=== PATIENT | male | born 1950 | race Caucasian/White ===

== ENCOUNTER 2020-09-10 01:17 | Emergency (ER) | payer OTHER ==
[~2020-09-10] VITALS: Ht 177.8 cm; Wt 84.0 kg
[~2020-09-10 01:17] MED LIST: AMI2 PO; ATOR40TA70 PO; Aspirin PO; CARV3.1242 PO; CLOP75TA15 PO; FERR-43 PO; Folic Acid PO; Hydrocortisone PO; LEVO25TA7 PO; LISI2.5T47 PO; Multivitamins,Therapeutic PO; OMEP20TA2 PO; ONDA4TAB5 PO; PRAS10TA6 PO; Thiamine Hcl PO
[2020-09-10 02:53] VITALS: BP 159/84
== END 2020-09-10 04:33 | disposition home or self-care (01) ==
LOC: ER 01:17
DX: F10.129 Alcohol abuse with intoxication, unspecified (principal); Y90.0 Blood alcohol level of less than 20 mg/100 ml; I10 Essential (primary) hypertension; K29.20 Alcoholic gastritis without bleeding; Z79.899 Other long term (current) drug therapy
CPT/HCPCS: 99283

== ENCOUNTER 2020-11-29 13:32 | Emergency (ER) | payer OTHER ==
[~2020-11-29] VITALS: Ht 172.7 cm; Wt 80.0 kg
[2020-11-29] MEDS ORDERED: SODIUM CHLORIDE 0.9% 1,000 ML IV ONE (14:00)
[2020-11-29 14:18] LABS: BASOPHILS % 0.5 % (0.0-2.0); EOSINOPHILS % 0.8 % (0.0-5.0); HEMATOCRIT. 38.9 % (42.0-52.0); HEMOGLOBIN. 13.5 g/dL (14.0-18.0); LYMPHOCYTES % 57.8 % (20.0-50.0); MEAN CORPUSCULAR HEMOGLOBIN 31.8 pg (28.0-32.0); MEAN CORPUSCULAR VOLUME 91.5 fL (80.0-94.0); MEAN PLATELET VOLUME 8.2 fl (7.4-10.4); MONOCYTES % 6.3 % (2.0-8.0); NEUTROPHILS % 34.6 % (40.0-76.0); PLATELET 155 x1000/uL (130-400); RED BLOOD CELL COUNT 4.25 mill/uL (4.7-6.1); RED CELL DISTRIBUTION WIDTH 14.5 % (11.6-14.6)
[2020-11-29 14:23] LABS: CHLORIDE 101 mEq/L (98-107)
[2020-11-29 14:27] LABS: ETHANOL BLOOD 172 mg/dL
[2020-11-29] MEDS ORDERED: DEXT 5% WATER 250 ML IV ONE (14:45)
[2020-11-29 18:29] VITALS: BP 110/78
[2020-11-29] MEDS ORDERED: ONDANSETRON HCL 4MG/2ML INJ IV ONE (18:45)
== END 2020-11-29 19:12 | disposition home or self-care (01) ==
LOC: ER 13:32
DX: F10.129 Alcohol abuse with intoxication, unspecified (principal); Y90.6 Blood alcohol level of 120-199 mg/100 ml; I10 Essential (primary) hypertension; R53.1 Weakness; R42 Dizziness and giddiness
CPT/HCPCS: 36415; 80053; 80320; 82962; 83690; 85025; 93005; 96361; 96374; 99284; J2405; J7030; J7060; G0480

== ENCOUNTER 2021-07-26 11:09 | Emergency (ER) | payer OTHER ==
[~2021-07-26] VITALS: Ht 167.6 cm; Wt 78.0 kg
[2021-07-26] MEDS ORDERED: ONDANSETRON HCL 4MG/2ML INJ IV STA (11:19)
[2021-07-26 12:30] LABS: BASOPHILS % 0.5 % (0.0-2.0); EOSINOPHILS % 1.6 % (0.0-5.0); HEMATOCRIT. 36.4 % (42.0-52.0); HEMOGLOBIN. 12.4 g/dL (14.0-18.0); MEAN CORPUSCULAR HEMOGLOBIN 32.5 pg (28.0-32.0); MEAN CORPUSCULAR VOLUME 95.1 fL (80.0-94.0); MEAN PLATELET VOLUME 8.5 fl (7.4-10.4); MONOCYTES % 7.9 % (2.0-8.0); PLATELET 120 x1000/uL (130-400); RED BLOOD CELL COUNT 3.83 mill/uL (4.7-6.1); RED CELL DISTRIBUTION WIDTH 13.3 % (11.6-14.6)
[2021-07-26 12:36] LABS: CHLORIDE 105 mEq/L (98-107)
[2021-07-26 12:40] LABS: ETHANOL BLOOD < 10 mg/dL
[2021-07-26] MEDS ORDERED: SODIUM CHLORIDE 0.9% 1,000 ML IV ONE (13:30)
[2021-07-26] MEDS ORDERED: ASPIRIN 81MG TABLET PO ONE (15:45)
[2021-07-26 19:55] VITALS: BP 118/66
== END 2021-07-26 19:56 | disposition home or self-care (01) ==
LOC: ER 11:09 → EDBEDREQ 13:24 → EDBEDREQTM 13:24 → ER 19:56 → CANBEDREQ 20:13
DX: R07.89 Other chest pain (principal); R11.2 Nausea with vomiting, unspecified; I10 Essential (primary) hypertension; Z79.899 Other long term (current) drug therapy; Z20.822 Contact with and (suspected) exposure to COVID-19
CPT/HCPCS: 36415; 71045; 80053; 80320; 83880; 84484; 85025; 87426; 93005; 96374; 99285; J2405; J7030; G0480

== ENCOUNTER 2021-09-05 16:58 | Inpatient (IN) | payer OTHER ==
[~2021-09-05] VITALS: Ht 185.4 cm; Wt 82.8 kg
[2021-09-05] MEDS ORDERED: ONDANSETRON HCL 4MG/2ML INJ IV STA (17:16)
[2021-09-05] MEDS ORDERED: MORPHINE SULFATE 4 MG/ML CPJ (NOT FOR IM USE) IV STA (17:16)
[2021-09-05] MEDS ORDERED: PANTOPRAZOLE SODIUM 40 MG/VIAL IV ONE (17:30)
[2021-09-05] MEDS ORDERED: SODIUM CHLORIDE 0.9% 1000ML BAG (SEPSIS BOLUS) IV ONE (17:30)
[2021-09-05] MEDS ORDERED: SODIUM CHLORIDE 0.9% 1,000 ML IV ONE (17:30)
[2021-09-05 18:47] LABS: BASOPHILS % 0.6 % (0.0-2.0); EOSINOPHILS % 0.8 % (0.0-5.0); HEMATOCRIT. 37.4 % (42.0-52.0); HEMOGLOBIN. 12.7 g/dL (14.0-18.0); LYMPHOCYTES % 32.7 % (20.0-50.0); MEAN CORPUSCULAR HEMOGLOBIN 31.3 pg (28.0-32.0); MEAN CORPUSCULAR VOLUME 92.4 fL (80.0-94.0); MEAN PLATELET VOLUME 8.6 fl (7.4-10.4); MONOCYTES % 8.5 % (2.0-8.0); NEUTROPHILS % 57.4 % (40.0-76.0); PLATELET 131 x1000/uL (130-400); RED BLOOD CELL COUNT 4.05 mill/uL (4.7-6.1); RED CELL DISTRIBUTION WIDTH 13.3 % (11.6-14.6)
[2021-09-05 18:49] LABS: CHLORIDE 104 mEq/L (98-107)
[2021-09-05 18:53] LABS: ETHANOL BLOOD 35 mg/dL
[2021-09-05] MEDS ORDERED: MAGNESIUM/ALUMINUM HYDROXIDE/SIMETHICONE 30ML UDC PO NR (19:30)
[2021-09-05] MEDS ORDERED: VISCOUS LIDOCAINE 2% 15 ML UDC MM NR (19:30)
[2021-09-05] MEDS ORDERED: DEXTROSE 50% WATER 50ML SYRINGE IV PRN (23:30)
[2021-09-05] MEDS: ONDANSETRON HCL 4MG/2ML INJ IV PRN (23:39)
[2021-09-05] MEDS: MORPHINE SULFATE 2 MG/ML CPJ (NOT FOR IM USE) IV PRN (23:39)
[2021-09-06 00:14] LABS: CLARITY URINE CLEAR (CLEAR); COLOR URINE YELLOW (YELLOW); KETONES URINE 4+ (NEGATIVE); LEUKOCYTE ESTERASE URINE NEGATIVE (NEGATIVE); NITRITE URINE NEGATIVE (NEGATIVE); OCCULT BLOOD URINE 1+ (NEGATIVE); PH URINE 5.5 (4.5-8.0); PROTEIN URINE TRACE (NEGATIVE); SPECIFIC GRAVITY URINE 1.023 (1.005-1.030)
[2021-09-06 00:31] LABS: *BARBITURATES SCREEN URINE NEGATIVE (NEGATIVE)
[2021-09-06 00:32] LABS: *BENZODIAZEPINES SCREEN URINE NEGATIVE (NEGATIVE); *COCAINE SCREEN URINE NEGATIVE (NEGATIVE)
[2021-09-06 00:34] LABS: *AMPHETAMINES SCREEN URINE NEGATIVE (NEGATIVE); CANNABINOID URINE SCREEN NEGATIVE (NEGATIVE); METHADONE URINE SCREEN NEGATIVE (NEGATIVE); OPIATES URINE SCREEN PRESUMTIVE POSITIVE (NEGATIVE); PHENCYCLIDINE URINE SCREEN NEGATIVE (NEGATIVE)
[2021-09-06] MEDS ORDERED: METOCLOPRAMIDE HCL 10MG/2ML VIAL IV ONE (07:00)
[2021-09-06] MEDS ORDERED: METRONIDAZOLE 500 MG PREMIX 100 ML IV SCH (09:00)
[2021-09-06] MEDS ORDERED: LEVOFLOXACIN 500MG PREMIX 100 ML IV SCH (09:00)
[2021-09-06] MEDS ORDERED: PANTOPRAZOLE SODIUM 40 MG/VIAL IV SCH (09:00)
[2021-09-06 09:03] VITALS: BP 140/72
[2021-09-06] MEDS ORDERED: FOLIC ACID 1 MG, THIAMINE HCL 100 MG, MVI, ADULT NO.1 10 ML in DEXTROSE 5% WATER 1,000 ML IV ONE ×4 (10:00)
[2021-09-06] MEDS: LEVOFLOXACIN 500MG PREMIX 100 ML IV SCH (11:37)
[2021-09-06] MEDS: ONDANSETRON HCL 4MG/2ML INJ IV PRN (11:37)
[2021-09-06 12:00] VITALS: BP 140/74
[2021-09-06] MEDS: METRONIDAZOLE 500 MG PREMIX 100 ML IV SCH ×2 (15:09→21:18)
[2021-09-06] MEDS ORDERED: ASPI-1497 PO (15:51)
[2021-09-06 16:00] VITALS: BP 134/71
[2021-09-06] MEDS ORDERED: FURO20TA4 PO (16:00)
[2021-09-06] MEDS ORDERED: GABA-529 PO (16:00)
[2021-09-06] MEDS ORDERED: DABI150C PO (16:00)
[2021-09-06] MEDS: SUCRALFATE 1G TABLET PO SCH ×2 (17:24→21:18)
[2021-09-06 20:00] VITALS: BP 139/57
[2021-09-06] MEDS: BLOOD SUGAR DIAGNOSTIC STRIP TEST SCH (20:56)
[2021-09-06] MEDS: PANTOPRAZOLE SODIUM 40 MG/VIAL IV SCH (21:18)
[2021-09-07] VITALS: BP 141/72
[2021-09-07] MEDS: ONDANSETRON HCL 4MG/2ML INJ IV PRN ×2 (00:04→04:23)
[2021-09-07] MEDS: MORPHINE SULFATE 2 MG/ML CPJ (NOT FOR IM USE) IV PRN ×2 (00:05→04:23)
[2021-09-07 04:00] VITALS: BP 143/74
[2021-09-07] MEDS: BLOOD SUGAR DIAGNOSTIC STRIP TEST SCH ×4 (06:22→21:08)
[2021-09-07] MEDS: SUCRALFATE 1G TABLET PO SCH ×4 (06:22→21:10)
[2021-09-07] MEDS: METRONIDAZOLE 500 MG PREMIX 100 ML IV SCH ×4 (06:22→21:10)
[2021-09-07 07:24] LABS: BASOPHILS % 0.5 % (0.0-2.0); EOSINOPHILS % 2.4 % (0.0-5.0); HEMATOCRIT. 31.2 % (42.0-52.0); HEMOGLOBIN. 11.1 g/dL (14.0-18.0); LYMPHOCYTES % 33.6 % (20.0-50.0); MEAN CORPUSCULAR HEMOGLOBIN 32.5 pg (28.0-32.0); MEAN CORPUSCULAR VOLUME 91.2 fL (80.0-94.0); MEAN PLATELET VOLUME 8.3 fl (7.4-10.4); MONOCYTES % 7.5 % (2.0-8.0); PLATELET 94 x1000/uL (130-400); RED BLOOD CELL COUNT 3.42 mill/uL (4.7-6.1); RED CELL DISTRIBUTION WIDTH 13.1 % (11.6-14.6)
[2021-09-07 07:33] LABS: INR 1.1; PROTHROMBIN TIME 11.6 sec (9.6-11.0)
[2021-09-07 07:55] LABS: FOLIC ACID (FOLATE) SERUM >20 ng/mL ng/mL (>5.38)
[2021-09-07 08:00] VITALS: BP 119/74
[2021-09-07 08:00] LABS: HEPATITIS B SURFACE ANTIGEN NEGATIVE
[2021-09-07 08:06] LABS: VITAMIN B12 SERUM 608 pg/mL (211-911)
[2021-09-07 08:07] LABS: CHLORIDE 101 mEq/L (98-107)
[2021-09-07 08:14] LABS: TOTAL IRON BINDING CAPACITY 229 ug/dL (250-450)
[2021-09-07] MEDS: LEVOFLOXACIN 500MG PREMIX 100 ML IV SCH (09:01)
[2021-09-07] MEDS: PANTOPRAZOLE SODIUM 40 MG/VIAL IV SCH ×2 (09:01→21:10)
[2021-09-07 12:00] VITALS: BP 134/70
[2021-09-07 13:20] LABS: FERRITIN 192 ng/mL (22-322)
[2021-09-07] MEDS ORDERED: POTASSIUM CHLORIDE 20MEQ TABLET SR PO NR (15:30)
[2021-09-07 16:00] VITALS: BP 130/70
[2021-09-07 20:00] VITALS: BP 124/74
[2021-09-07] MEDS ORDERED: METR500T MT (22:45)
[2021-09-07] MEDS ORDERED: LEVO500T89 MT (22:45)
[2021-09-07] MEDS: ACETAMINOPHEN 325MG TABLET PO PRN (23:35)
[2021-09-08] VITALS: BP 128/64
[2021-09-08 04:00] VITALS: BP 122/62
[2021-09-08] MEDS: METRONIDAZOLE 500 MG PREMIX 100 ML IV SCH ×3 (05:21→20:57)
[2021-09-08] MEDS: BLOOD SUGAR DIAGNOSTIC STRIP TEST SCH ×4 (06:14→20:58)
[2021-09-08] MEDS: SUCRALFATE 1G TABLET PO SCH ×4 (07:10→20:57)
[2021-09-08 07:50] LABS: BASOPHILS % 0.6 % (0.0-2.0); HEMATOCRIT. 34.1 % (42.0-52.0); HEMOGLOBIN. 11.8 g/dL (14.0-18.0); LYMPHOCYTES % 32.8 % (20.0-50.0); MEAN CORPUSCULAR HEMOGLOBIN 31.8 pg (28.0-32.0); MEAN CORPUSCULAR VOLUME 92.2 fL (80.0-94.0); MEAN PLATELET VOLUME 8.3 fl (7.4-10.4); MONOCYTES % 8.3 % (2.0-8.0); NEUTROPHILS % 56.3 % (40.0-76.0); PLATELET 99 x1000/uL (130-400); RED CELL DISTRIBUTION WIDTH 12.8 % (11.6-14.6)
[2021-09-08 08:00] VITALS: BP 137/68
[2021-09-08 08:05] LABS: CHLORIDE 100 mEq/L (98-107)
[2021-09-08] MEDS ORDERED: LIDOCAINE HCL 1% 20ML VIAL (Pyxis) INJ ONE (08:06)
[2021-09-08] MEDS: LEVOFLOXACIN 500MG PREMIX 100 ML IV SCH (09:05)
[2021-09-08] MEDS: PANTOPRAZOLE SODIUM 40 MG/VIAL IV SCH ×2 (09:05→20:57)
[2021-09-08] MEDS: ONDANSETRON HCL 4MG/2ML INJ IV PRN ×2 (09:05→18:28)
[2021-09-08] MEDS: ACETAMINOPHEN 325MG TABLET PO PRN ×2 (11:01→22:14)
[2021-09-08 12:00] VITALS: BP 100/52
[2021-09-08 16:05] VITALS: BP 121/70
[2021-09-08 20:00] VITALS: BP 149/65
[2021-09-09] VITALS: BP 103/40
[2021-09-09 04:00] VITALS: BP 107/51
[2021-09-09] MEDS: BLOOD SUGAR DIAGNOSTIC STRIP TEST SCH (05:42)
[2021-09-09] MEDS: METRONIDAZOLE 500 MG PREMIX 100 ML IV SCH (05:42)
[2021-09-09] MEDS: SUCRALFATE 1G TABLET PO SCH (05:45)
[2021-09-09 07:45] LABS: CHLORIDE 101 mEq/L (98-107)
[2021-09-09 08:00] VITALS: BP 110/59
[2021-09-09] MEDS: LEVOFLOXACIN 500MG PREMIX 100 ML IV SCH (09:00)
[2021-09-09] MEDS: PANTOPRAZOLE SODIUM 40 MG/VIAL IV SCH ×2 (09:00→09:30)
[2021-09-09 11:58] VITALS: BP 104/44
[2021-09-09 12:00] VITALS: BP 104/44
== END 2021-09-09 13:12 | disposition home or self-care (01) | DRG 381 ==
LOC: ER 16:58 → MICUSO 20:51 → EDBEDREQ 20:54 → EDBEDREQSVC 20:54 → EDBEDREQTM 20:54 → 8WST 09-06 09:35
PROVIDERS: ADMIT Internal Medicine; ATTEND Internal Medicine
DX: K22.11 Ulcer of esophagus with bleeding (principal); F10.239 Alcohol dependence with withdrawal, unspecified; I42.9 Cardiomyopathy, unspecified; I50.32 Chronic diastolic (congestive) heart failure; K57.93 Diverticulitis of intestine, part unspecified, without perforation or abscess with bleeding; K22.6 Gastro-esophageal laceration-hemorrhage syndrome; D64.9 Anemia, unspecified; E16.2 Hypoglycemia, unspecified; F10.229 Alcohol dependence with intoxication, unspecified; I11.0 Hypertensive heart disease with heart failure; I25.10 Atherosclerotic heart disease of native coronary artery without angina pectoris; K44.9 Diaphragmatic hernia without obstruction or gangrene; K52.9 Noninfective gastroenteritis and colitis, unspecified; Z20.822 Contact with and (suspected) exposure to COVID-19; K70.30 Alcoholic cirrhosis of liver without ascites; K76.0 Fatty (change of) liver, not elsewhere classified; Y90.1 Blood alcohol level of 20-39 mg/100 ml; K86.89 Other specified diseases of pancreas; Z79.02 Long term (current) use of antithrombotics/antiplatelets; Z79.82 Long term (current) use of aspirin; Z86.718 Personal history of other venous thrombosis and embolism; Z86.73 Personal history of transient ischemic attack (TIA), and cerebral infarction without residual deficits; Z87.19 Personal history of other diseases of the digestive system; Z90.49 Acquired absence of other specified parts of digestive tract; Z95.810 Presence of automatic (implantable) cardiac defibrillator; Z98.61 Coronary angioplasty status; Z79.890 Hormone replacement therapy; Z79.899 Other long term (current) drug therapy; Z71.41 Alcohol abuse counseling and surveillance of alcoholic
CPT/HCPCS: 36415; 71045; 74176; 76700; 80048; 80053; 80076; 80305; 80320; 81003; 82140; 82248; 82607; 82728; 82746; 82962; 83540; 83550; 83605; 83880; 84145; 84484; 85025; 85044; 86705; 86709; 86803; 86850; 86900; 87340; 87426; 93005; 99291; C1893; C9113; J1956; J2270; J2405; J2765; J3411; J3490; J7030; J7040; J7070; G0480